=== PATIENT | female | born 1930 | race Caucasian/White ===

== ENCOUNTER → 2016-12-11 | Outpatient (CLI) | payer MEDICARE, OTHER ==
[~2016-12-11] MED LIST: CALC600T12 PO; FOLI-40 PO; METH25PO21 MC; PRED-219 PO
--- NOTE | 2016-12-11 20:16 | ECHOF ---
DATE OF PROCEDURE December 11, 2016 This is a two-dimensional echo with spectral Doppler, color-flow and M-mode. It was obtained in a patient with shortness of air. Left atrial dimension is normal. Left ventricular end-diastolic dimension is normal. Left ventricular wall thickness is increased. LV systolic function is normal with ejection fraction of 65%. Right atrium is normal. Right ventricle is normal. Aortic root dimension is normal. The mitral valve is morphologically normal with mild mitral regurgitation. Aortic valve shows mild fibrocalcific changes with mild aortic insufficiency. Tricuspid valve shows mild tricuspid regurgitation with normal estimated pulmonary artery systolic pressure of 24. Pulmonary valve shows no pulmonary insufficiency. There is no pericardial effusion. IMPRESSION 1. Normal LV systolic function with ejection fraction of 65%. 2. Mild mitral regurgitation. 3. Aortic sclerosis with mild aortic insufficiency. 4. Mild tricuspid regurgitation with normal estimated pulmonary artery systolic pressure of 24. 5. Mild concentric left ventricular hypertrophy. MTDD
== END ==
LOC: IMA 09:42
PROVIDERS: ATTEND Internal Medicine Cardiovascular Disease
DX: I08.3 Combined rheumatic disorders of mitral, aortic and tricuspid valves (principal); R06.02 Shortness of breath; R94.31 Abnormal electrocardiogram [ECG] [EKG]
CPT/HCPCS: 93306

== ENCOUNTER → 2016-12-16 | Outpatient (CLI) | payer MEDICARE, OTHER ==
[~2016-12-16] VITALS: Ht 160 cm; Wt 65.9 kg
[~2016-12-16] MED LIST changes: +REGADENOSON 0.4mg/5ml INJECTION IV ONE; +SALINE FLUSH 10ml SYRINGE ONE
--- NOTE | 2016-12-17 11:45 | ADENOSINEF ---
DATE OF PROCEDURE December 16, 2016 PROCEDURE 1. Lexiscan Myoview. INDICATION Chest pain. IMPRESSION 1. Baseline EKG shows sinus rhythm with frequent PVCs and right bundle branch block and cannot rule out anterior SC. 2. She tolerated the Lexiscan without difficulty. 3. Hemodynamic response to Lexiscan was appropriate. 4. There were no ischemic EKG changes. 5. There were no arrhythmias. 6. 12.3 mCi of Myoview was given for rest images and 31.5 mCi for stress images. 7. Nuclear perfusion images revealed normal coronary perfusion with no scar or ischemia. 8. Quantitative ejection fraction is measured at 62%. MTDD
== END ==
LOC: IMA 12:28
PROVIDERS: ATTEND Internal Medicine Cardiovascular Disease
DX: R07.2 Precordial pain (principal)
CPT/HCPCS: 78452; 93017; A9502; J2785

== ENCOUNTER 2017-01-07 08:00 | Observation (INO) | payer MEDICARE, OTHER ==
[~2017-01-07] VITALS: Ht 165.1 cm; Wt 64.5 kg
[~2017-01-07 08:00] MED LIST changes: +ACET-2723 PO; +MAGN400T6 PO; -METH25PO21 MC; +METH25VI11 IM; -REGADENOSON 0.4mg/5ml INJECTION IV ONE; -SALINE FLUSH 10ml SYRINGE ONE
--- OUTSIDE RECORDS SUMMARY | 2017-01-07 08:11 | XMS REPORT | Referral Summary ---
Author Author [facility] Organization [facility] Address Unknown Phone Unavailable Care Team Providers Care Timber Killer Name Role Phone Stef Pierson Primary Care Physician [phone] Encounter VC Date(s): 10/22/15 - 10/22/15 [facility] [id number] [place] [id number] Discharge Diagnosis: Rheumatoid arthritis (disorder) Discharge Diagnosis: Hx of congestive heart failure Discharge Diagnosis: History of ongoing treatment with high-risk medication Discharge Disposition: 01-Home or Self Care Attending Physician: Kasandra Villa MD Admitting Physician: Kasandra Villa MD Referring Physician: Stef Pierson MD Vital Signs Most recent to 1 oldest [Reference Range]: Temperature Oral 36.6 degC [35.8-37.3 degC] (10/22/15 10:26 AM) Peripheral Pulse 88 bpm Rate [60-100 bpm] (10/22/15 10:26 AM) Blood Pressure 138/80 mmHg [90-140/60-90 mmHg] (10/22/15 10:26 AM) Problem List Condition Effective Dates Status Health Status Informant Arthralgia of the Active ankle and/or foot (finding)(Confirmed) Cerebrovascular Active accident(Confirmed) Hx of congestive Active heart failure(Confirmed) History of ongoing Active treatment with high-risk medication(Confirmed ) HEARING Active LOSS(Confirmed) Osteoporosis(Confirm Active ed) RA(Confirmed) Resolved Rheumatoid arthritis Active (disorder)(Confirmed ) Allergies, Adverse Reactions, Alerts Substance Reaction Severity Status Dilaudid severe constipation Mild Active Plaquenil eye problems Active Medications Aspirin Low Dose 81 mg, Oral, Daily, 0 Refill(s) Start Date: 02/05/14 Status: Ordered calcium citrate 600 mg, Oral, BID, 0 Refill(s) Start Date: 02/05/14 Status: Ordered cholecalciferol 2,000 Intl_Units, Oral, Daily, 0 Refill(s) Start Date: 02/05/14 Status: Ordered folic acid 1 mg oral tablet See Instructions, TAKE ONE TABLET BY MOUTH TWICE A DAY, # 100 tabs, 3 Refill(s) , eRx: [facility] #[id number], TAKE ONE TABLET BY MOUTH TWICE A DAY Start Date: 09/25/15 Status: Ordered methotrexate IV additive See Instructions, INJECT (0.7) ML SUBCUTANEOUSLY EVERY THURSDAY, # 10 mL, 2 Refill(s), eRx: [facility], INJECT (0.7) ML SUBCUTANEOUSLY EVERY THURSDAY Start Date: 03/21/15 Status: Ordered [place] 5 mg-325 mg oral tablet See Instructions, Take 1 tab PO Q 6 hrs and 2 PT at bedtime, 0 Refill(s) Start Date: 02/05/14 Status: Ordered oxybutynin 5 mg oral tablet 1/2 tabs, Oral, Bedtime (once a day), 0 Refill(s) Start Date: 04/23/15 Status: Ordered predniSONE 5 mg oral tablet See Instructions, TAKE ONE TABLET BY MOUTH EVERY DAY, # 90 tabs, 1 Refill(s), eRx: [facility] #[id number], TAKE ONE TABLET BY MOUTH EVERY DAY Start Date: 09/25/15 Status: Ordered Tylenol Caplet 325 mg, Oral, q4hr, as needed for pain, 0 Refill(s) Start Date: 02/05/14 Status: Ordered Results Hematology Most recent to 1 oldest [Reference Range]: WBC [4.8-10.8 7.2 10*3/uL 10*3/uL] (10/22/15 11:23 AM) RBC [4.00-5.20] 4.46 (10/22/15 11:23 AM) Hgb [12.0-16.0 14.2 gm/dL gm/dL] (10/22/15 11:23 AM) Hct [37.0-47.0 %] 44.6 % (10/22/15 11:23 AM) MCV [82.0-99.0 fL] 100.0 fL *HI* (10/22/15 11:23 AM) MCH [27.0-32.0 pg] 31.8 pg (10/22/1523 AM) MCHC [32.0-36.0 31.8 gm/dL gm/dL] *LOW* (10/22/15) RDW [11.5-14.5 %] 14.3 % (10/22/15 AM) Platelet [150-400 242 10*3/uL 10*3/uL] (10/22/15) MPV [8.8-14.8 fL] 10.2 fL (10/22/15) Immature 0.3 % Granulocytes (10/22/15) [0.0-1.0 %] Neutrophils [51-75 84 % %] *HI* (10/22/15) Lymphocytes [20-46 10 % %] *LOW* (10/22/15) Monocytes [4-11 %] 5 % (10/22/15) Eosinophils [0-4 %] 0 % (10/22/15) Basophils [0-2 %] 0 % (10/22/15 AM) Neutro Absolute 6.12 10*3 [1.90-7.00 10*3] (10/22/15 AM) Lymph Absolute 0.70 10*3 [0.80-3.30 10*3] *LOW* (10/22/15) [place] Absolute 0.36 10*3 [0.30-1.00 10*3] (10/22/15 AM) Eos Absolute 0.02 10*3 [0.00-0.50 10*3] (10/22/1523 AM) Baso Absolute 0.02 10*3 [0.00-0.20 10*3] (10/22/15 AM) Chemistry Most recent to 1 oldest [Reference Range]: Sodium Lvl [135-144 141 mEq/L mEq/L] (10/22/1523 AM) Potassium Lvl 4.7 mEq/L [3.5-5.2 mEq/L] (10/22/15 AM) Chloride [99-111 104 mEq/L mEq/L] (10/22/15 AM) CO2 [22-31 mEq/L] 29 mEq/L (10/22/15 AM) AGAP [3-20] 8 (10/22/15 AM) BUN [10-20 mg/dL] 18 mg/dL (10/22/15 AM) Glucose Lvl [70-99 100 mg/dL mg/dL] *HI* (10/22/15 AM) Creatinine Lvl 0.72 mg/dL [0.57-1.11 mg/dL] (10/22/15 AM) eGFR [>60 mL/min] >60 mL/min 1 (10/22/15 AM) Calcium Lvl 10.5 mg/dL [8.9-10.5 mg/dL] (10/22/15 AM) Albumin Lvl [3.4-4.8 4.2 gm/dL gm/dL] (10/22/15 AM) Total Protein 6.6 gm/dL [6.2-8.1 gm/dL] (10/22/15 AM) Globulin [1.8-4.0 2.4 gm/dL gm/dL] (10/22/15 AM) ALT [0-55 U/L] 15 U/L (10/22/15 AM) AST [5-34 U/L] 25 U/L (10/22/15 AM) Alk Phos [40-150 42 U/L U/L] (10/22/15 AM) Bili Total [0.2-1.2 0.7 mg/dL mg/dL] (10/22/15: AM) 1Result Comment: Multiply eGFR results by 1.21 for race. Immunizations No data available for this section Procedures Procedure Date Related Diagnosis Body Site Colonoscopies1 04/16/09 Hip Replacement R 1990 B/L FOOT SX -2 HIP REPLACEMENT Hip Replacement L3 Hip Replacement R4 Knee replacement 1COLONOSCOPY WITH BIOPSIES SHOWING CHRONIC NONSPECIFIC COLITIS. 2DR MARTIN [id number]'S [id number]'S Social History Social History Type Response Smoking Status Never smoker Assessment and Plan Extracted from: Title: Office Visit Note Author: Kasandra Villa MD Date: 10/22/15 Assessment/Plan 1.Rheumatoid arthritis (disorder) 2.History of ongoing treatment with high-risk medication Ordered: CBC w/ Differential Comprehensive Metabolic Panel Office Visit Level 4 Est 08459 3.Hx of congestive heart failure
--- OUTSIDE RECORDS SUMMARY | 2017-01-07 08:11 | XMS REPORT | Referral Summary ---
Author Author [facility] Organization [facility] Address Unknown Phone Unavailable Care Team Providers Care [place] Manager Name Role Phone Stef Pierson Primary Care Physician [phone] Encounter VC Date(s): 03/27/15 - 03/27/15 [facility] [address] [place] [id number] Discharge Disposition: 01-Home or Self Care Attending Physician: Martinez Dumont DPM Admitting Physician: Martinez Dumont DPM Vital Signs No data available for this section Problem List Condition Effective Dates Status Health Status Informant Arthralgia of the Active ankle and/or foot (finding)(Confirmed) Cerebrovascular Active accident(Confirmed) History of ongoing Active treatment with high-risk [...] # 100 tabs, 3 Refill(s) , eRx: [facility] #[id number], TAKE ONE TABLET BY MOUTH TWICE A DAY Start Date: 09/25/15 Status: Ordered methotrexate IV additive See Instructions, INJECT (0.7) ML SUBCUTANEOUSLY EVERY THURSDAY, # 10 mL, 2 Refill(s), eRx: [facility], INJECT (0.7) ML SUBCUTANEOUSLY EVERY THURSDAY Start Date: 03/21/15 Status: Ordered [place] 5 mg-325 mg oral tablet See Instructions, [...] DAY, # 90 tabs, 1 Refill(s), eRx: [facility] #[id number], TAKE ONE TABLET BY MOUTH EVERY DAY Start Date: 09/25/15 Status: Ordered Tylenol Caplet 325 mg, Oral, q4hr, as needed for pain, 0 Refill(s) Start Date: 02/05/14 Status: Ordered Results No data available for this section Immunizations No data available for this section Procedures Procedure Date Related Diagnosis Body Site Colonoscopies1 04/16/09 Hip Replacement R 1990 B/L FOOT SX -2 HIP REPLACEMENT Hip Replacement L3 Hip Replacement R4 Knee replacement 1COLONOSCOPY WITH BIOPSIES SHOWING CHRONIC NONSPECIFIC COLITIS. 2DR MARTIN 21212'S [id number]'S Social History Social History Type Response Smoking Status Never smoker Assessment and Plan No data available for this section
--- OUTSIDE RECORDS SUMMARY | 2017-01-07 08:11 | XMS REPORT | Continuity of Care Document ---
Author Author Nelida Molina [facility] Address [address] [place] [address] Phone Care Team Providers Care Reserve Officer Name Role Phone Stef Pierson PP Unavailable Payers Payer name Insurance type Covered libertarian ID Authorization(s) Unknown Problems Condition Effective Dates (start - stop) Clinical Status Dermatophytosis of foot - *Acute Corns and callosities - *Chronic Pain in limb - *Chronic Rheumatoid Arthritis - *Chronic CVA, Acute - *Acute Rheumatoid Arthritis - *Chronic Rheumatoid Arthritis - *Chronic Therapeutic Drug Monitoring - *Chronic Rheumatoid Arthritis - *Chronic Pain in joint involving ankle and foot - *Chronic Therapeutic Drug Monitoring - *Chronic Pain in joint involving shoulder region - *Worse Edema - *Acute Rheumatoid Arthritis - *Chronic Pain in joint involving ankle and foot - *Chronic Therapeutic Drug Monitoring - *Chronic Other osteoporosis - *Stable Ulcer of foot - Uncertain Edema - *Fair Control Encounter for therapeutic drug monitoring - *Chronic HEARING LOSS NOS - RHEUMATOID ARTHRITIS - OSTEOPOROSIS NEC - Bronchitis, Acute - *Acute Family History Family Member Diagnosis Age At Onset Status Family h/o (Unknown) Diabetes Yes Social History Social History Element Description Quantity Unknown Allergies, Adverse Reactions, Alerts Substance Reaction Severity Status HYDROXYCHLOROQUINE SULFATE EYE PROBLEMS Unknown Medications Medication Instructions Dosage Effective Dates (start - stop) Status Aspirin Low Dose 81 mg tablet,delayed release take 1 tablet (81MG) by oral route every day 81 MG - Active Tylenol 325 mg tablet take 1 tablet (325MG) by oral route every 4 hours as needed 325 MG - Active Calcio William 500 mg tablet two po daily - Active Vitamin D3 2,000 unit tablet one po daily - Active methotrexate sodium 25 mg/mL Injection Inject 0.7 ml SQ every Thursday. Feb - Active prednisone 5 mg tablet Take 1 tablet by mouth every day. - Active folic acid 1 mg tablet ONE PO BID. - Active Immunizations Vaccine Date Status Comments Unknown Results Test Name Date and Time Measure Units Reference Range Abnormal Flag Comments Unknown Vital Signs Date / Time: Height Weight Pulse Rate Blood Pressure Temperature Unknown Procedures Procedure Date Unknown Encounters Encounter Location Date Patient Visit [facility] Pod Patient Visit [facility] Patient Visit [facility] Rheum Patient Visit [facility] Patient Visit [facility] Patient Visit [facility] Patient Visit [facility] Rheum Patient Visit [facility] Patient Visit [facility] Patient Visit [facility] Advance Directives Directive Effective Date Unknown
--- OUTSIDE RECORDS SUMMARY | 2017-01-07 08:11 | XMS REPORT | Referral Summary ---
Author Author [facility] Organization [facility] Address Unknown Phone Unavailable Care Team Providers Care Tree Killer Name Role Phone Vianca Brown Primary Care Physician [phone] Encounter VC Date(s): 10/27/16 - 10/27/16 [facility] [address] [place] [id number] Discharge Diagnosis: Rheumatoid arthritis (disorder) Discharge Diagnosis: Left foot pain Discharge Diagnosis: History of ongoing treatment with high-risk medication Discharge Disposition: 01-Home or Self Care Attending Physician: Kasandra Villa MD Admitting Physician: Kasandra Villa MD Vital Signs Most recent to 1 oldest [Reference Range]: Temperature Oral 36.8 degC [35.8-37.3 degC] (10/27/16 9:59 AM) Peripheral Pulse 80 bpm Rate [60-100 bpm] (10/27/16 9:59 AM) Blood Pressure 123/70 mmHg [90-140/60-90 mmHg] (10/27/16 9:59 AM) Problem List Condition Effective Dates Status Health Status Informant Cerebrovascular Active accident(Confirmed) Left foot Active pain(Confirmed) Hx of congestive Active heart failure(Confirmed) History of ongoing Active treatment with high-risk medication(Confirmed ) HEARING Active LOSS(Confirmed) Osteoporosis(Confirm Active ed) RA(Confirmed) Resolved Rheumatoid arthritis Active (disorder)(Confirmed ) Allergies, Adverse Reactions, Alerts Substance Reaction Severity Status Dilaudid severe constipation Mild Active Plaquenil eye problems Active Medications acetaminophen 500 mg oral tablet 1,000 mg 2 tabs, Oral, BID, OTC, # 100 tabs, 0 Refill(s), other reason (Rx) Start Date: 04/21/16 Status: Ordered Aspirin Low Dose 81 mg, Oral, Daily, 0 Refill(s) Start Date: 02/05/14 Status: Ordered B-D ALLERGY SYRINGE & NEEDLE 28 GAUGE 1/2 " B-D ALLERGY SYRINGE & NEEDLE 28 GAUGE /2 ", See Instructions, FOR USE WITH MTX ADMINISTRATION, # 10 Each, 12 Refill(s), Pharmacy: [facility] #[id number] , FOR USE WITH MTX ADMINISTRATION Start Date: 03/05/16 Status: Ordered calcium citrate 600 mg, Oral, BID, 0 Refill(s) Start Date: 02/05/14 Status: Ordered cholecalciferol 2,000 Intl_Units, Oral, Daily, 0 Refill(s) Start Date: 02/05/14 Status: Ordered folic acid 1 mg oral tablet 1 mg 1 tabs, Oral, BID, # 180 tabs, 3 Refill(s), Pharmacy: [facility] # [id number], 1 tabs Oral BID Start Date: 04/21/16 Status: Ordered methotrexate IV additive See Instructions, INJECT 0.7ML SUBCUTANEOUSLY ONCE WEEKLY, # 10 unknown unit, eRx: [facility] #[id number] Start Date: 10/27/16 Status: Ordered predniSONE 5 mg oral tablet See Instructions, TAKE ONE TABLET BY MOUTH DAILY, # 100 tabs, eRx: [facility] #[id number] Start Date: 10/27/16 Status: Ordered Results No data available for this section Immunizations No data available for this section Procedures Procedure Date Related Diagnosis Body Site Colonoscopies1 04/16/09 Hip Replacement R 1991 B/L FOOT SX -2 HIP REPLACEMENT Hip Replacement L3 Hip Replacement R4 Knee replacement 1COLONOSCOPY WITH BIOPSIES SHOWING CHRONIC NONSPECIFIC COLITIS. 2DR MARTIN 17251'S 44608'S Social History Social History Type Response Smoking Status Never smoker Assessment and Plan No data available for this section
--- OUTSIDE RECORDS SUMMARY | 2017-01-07 08:11 | XMS REPORT | Referral Summary ---
Author Author [facility] Organization [facility] Address Unknown Phone Unavailable Care Team Providers Care Equipment Technician Name Role Phone [facility] Primary Care Physician Unavailable Encounter [facility] [id number] Date(s): 04/21/16 - 04/21/16 [facility] [address] [place] [id number] Discharge Diagnosis: Left foot pain Discharge Diagnosis: History of ongoing treatment with high-risk medication Discharge Diagnosis: Rheumatoid arthritis (disorder) Discharge Diagnosis: Skin ulceration Discharge Disposition: 01-Home or Self Care Attending Physician: Kasandra Villa MD Admitting Physician: Kasandra Villa MD Vital Signs Most recent to 1 oldest [Reference Range]: Temperature Oral 36.6 degC [35.8-37.3 degC] (04/21/16 10:57 AM) Peripheral Pulse 66 bpm Rate [60-100 bpm] (04/21/16 10:57 AM) Blood Pressure 145/67 mmHg [90-140/60-90 mmHg] *HI* (04/21/16 10:57 AM) Problem List Condition Effective Dates Status [...] B-D ALLERGY SYRINGE & NEEDLE 28 GAUGE 2 " B-D ALLERGY SYRINGE & NEEDLE 28 GAUGE 2 ", See Instructions, FOR USE WITH MTX ADMINISTRATION, # 10 Each, 12 Refill(s), Pharmacy: [facility] #[id number] , FOR USE WITH MTX ADMINISTRATION Start Date: 03/05/16 Status: Ordered calcium citrate 600 mg, Oral, BID, 0 Refill(s) Start Date: 02/05/14 Status: Ordered cholecalciferol 2,000 Intl_Units, Oral, Daily, 0 Refill(s) Start Date: 02/05/14 Status: Ordered folic acid 1 mg oral tablet 1 mg 1 tabs, Oral, BID, # 180 tabs, 3 Refill(s), Pharmacy: [facility] # [id number], 1 tabs Oral BID Start Date: 04/21/16 Status: Ordered methotrexate 25 mg/mL injectable solution 17.5 mg 0.7 mL, SubCutaneous, qWeek, # 10 mL, 0 Refill(s), Pharmacy: [facility] #[id number], 0.7 mL SubCutaneous qWeek Start Date: 04/21/16 Status: Ordered predniSONE 5 mg oral tablet 5 mg 1 tabs, Oral, Daily, # 100 tabs, 1 Refill(s), Pharmacy: [facility] # [id number], 1 tabs Oral Daily Start Date: 03/05/16 Status: Ordered Results Hematology Most recent to 1 oldest [Reference Range]: WBC [4.8-10.8 5.6 10*3/uL 10*3/uL] (04/21/16 12:05 PM) RBC [4.00-5.20] 4.52 (04/21/16 12:05 PM) Hgb [12.0-16.0 14.2 gm/dL gm/dL] (04/21/16 12:05 PM) Hct [37.0-47.0 %] 45.3 % (04/21/16 12:05 PM) MCV [82.0-99.0 fL] 100.2 fL *HI* (04/21/16 12:05 PM) MCH [27.0-32.0 pg] 31.4 pg (04/21/16 12:05 PM) MCHC [32.0-36.0 31.3 gm/dL gm/dL] *LOW* (04/21/16:05 PM) RDW [11.5-14.5 %] 14.3 % (04/21/16:05 PM) Platelet [150-400 208 10*3/uL 10*3/uL] (04/21/16:05 PM) MPV [8.8-14.8 fL] 10.6 fL (04/21/16 PM) Immature 0.0 % Granulocytes (04/21/16 PM) [0.0-1.0 %] Neutrophils [51-75 80 % %] *HI* (04/21/16 PM) Lymphocytes [20-46 11 % %] *LOW* (04/21/1605 PM) Monocytes [4-11 %] 8 % (04/21/16:05 PM) Eosinophils [0-4 %] 0 % (04/21/16 PM) Basophils [0-2 %] 0 % (04/21/16:05 PM) Neutro Absolute 4.48 10*3 [1.90-7.00 10*3] (04/21/16:05 PM) Lymph Absolute 0.61 10*3 [0.80-3.30 10*3] *LOW* (04/21/16:05 PM) [place] Absolute 0.45 10*3 [0.30-1.00 10*3] (04/21/16:05 PM) Eos Absolute 0.02 10*3 [0.00-0.50 10*3] (04/21/16:05 PM) Baso Absolute 0.01 10*3 [0.00-0.20 10*3] (04/21/16:05 PM) Chemistry Most recent to 1 oldest [Reference Range]: Sodium Lvl [135-144 142 mEq/L mEq/L] (04/21/16:05 PM) Potassium Lvl 4.6 mEq/L [3.5-5.2 mEq/L] (04/21/16:05 PM) Chloride [99-111 107 mEq/L mEq/L] (8/15/16 12:05 PM) CO2 [22-31 mEq/L] 28 mEq/L (04/21/16 12:05 PM) AGAP [3-20] 7 (04/21/16 12:05 PM) BUN [10-20 mg/dL] 16 mg/dL (04/21/16 12:05 PM) Glucose Lvl [70-99 103 mg/dL mg/dL] *HI* (04/21/16 12:05 PM) Creatinine Lvl 0.70 mg/dL [0.57-1.11 mg/dL] (04/21/16 12:05 PM) eGFR [>60 mL/min] >60 mL/min 1 (04/21/16 12:05 PM) Calcium Lvl 10.6 mg/dL [8.9-10.5 mg/dL] *HI* (04/21/16 12:05 PM) Albumin Lvl [3.4-4.8 4.2 gm/dL gm/dL] (04/21/16 12:05 PM) Total Protein 6.4 gm/dL 2 [6.0-7.6 gm/dL] (04/21/16 12:05 PM) Globulin [1.8-4.0 2.2 gm/dL gm/dL] (04/21/16 12:05 PM) ALT [0-55 U/L] 22 U/L (04/21/16 12:05 PM) AST [5-34 U/L] 28 U/L (04/21/16 12:05 PM) Alk Phos [40-150 46 U/L U/L] (04/21/16 12:05 PM) Bili Total [0.2-1.2 0.6 mg/dL mg/dL] (04/21/16 12:05 PM) 1Result Comment: Multiply eGFR results by 1.21 for race. 2Result Comment: Please note new reference range for adult Protein. Immunizations No data available for this section Procedures Procedure Date Related Diagnosis Body Site Colonoscopies1 04/16/09 Hip Replacement R 1991 B/L FOOT SX -2 HIP REPLACEMENT Hip Replacement L3 Hip Replacement R4 Knee replacement 1COLONOSCOPY WITH BIOPSIES SHOWING CHRONIC NONSPECIFIC COLITIS. 2DR MARTIN 33355'S 43190'S Social History Social History Type Response Smoking Status Never smoker Assessment and Plan Extracted from: Title: Ambulatory Patient Education Author: Senia Gomez RN Date: Family Medicine Rheumatoid Arthritis Rheumatoid arthritis is a long-term (chronic) inflammatory disease that causes pain, swelling, and stiffness of the joints. It can affect the entire body, including the eyes and lungs. The effects of rheumatoid arthritis vary widely among those with the condition. CAUSES The cause of rheumatoid arthritis is not known. It tends to run in families and is more common in women. Certain cells of the body's natural defense system ( immune system) do not work properly and begin to attack healthy joints. It primarily involves the connective tissue that lines the joints (synovial membrane). This can cause damage to the joint. SYMPTOMS Pain, stiffness, swelling, and decreased motion of many joints, especially in the hands and feet. Stiffness that is worse in the morning. It may last 12 hours or longer. Numbness and tingling in the hands. Fatigue. Loss of appetite. Weight loss. Low-grade fever. Dry eyes and mouth. Firm lumps (rheumatoid nodules) that grow beneath the skin in areas such as the elbows and hands. DIAGNOSIS Diagnosis is based on the symptoms described, an exam, and blood tests. Sometimes, X-rays are helpful. TREATMENT The goals of treatment are to relieve pain, reduce inflammation, and to slow down or stop joint damage and disability. Methods vary and may include: Maintaining a balance of rest, exercise, and proper nutrition. Your health care provider may adjust your medicines every 3 months until treatment goals are reached. Common medicines include: Pain relievers (analgesics). Corticosteroids and nonsteroidal anti-inflammatory drugs (NSAIDs) to reduce inflammation. Disease-modifying antirheumatic drugs (DMARDs) to try to slow the course of the disease. Biologic response modifiers to reduce inflammation and damage. Physical therapy and occupational therapy. Surgery for patients with severe joint damage. Joint replacement or fusing of joints may be needed. Routine monitoring and ongoing care, such as office visits, blood and urine tests, and X-rays. Your health care provider will work with you to identify the best treatment option for you, based on an assessment of the overall disease activity in your body. HOME CARE INSTRUCTIONS Remain physically active and reduce activity when the disease gets worse. Eat a well-balanced diet. Put heat on affected joints when you wake up and before activities. Keep the heat on the affected joint for as long as directed by your health care provider. Put ice on affected joints following activities or exercising. Put ice in a plastic bag. Place a towel between your skin and the bag. Leave the ice on for 15-20 minutes, 3-4 times per day, or as directed by your health care provider. Take medicines and supplements only as directed by your health care provider. Use splints as directed by your health care provider. Splints help maintain joint position and function. Do not sleep with pillows under your knees. This may lead to spasms. Participate in a self-management program to keep current with the latest treatment and coping skills. SEEK IMMEDIATE MEDICAL CARE IF: You have fainting episodes. You have periods of extreme weakness. You rapidly develop a hot, painful joint that is more severe than usual joint aches. You have chills. You have a fever. FOR MORE INFORMATION [employer]: www.rheumatology.org Ar[employer]: www.arthritis.org This information is not intended to replace advice given to you by your health care provider. Make sure you discuss any questions you have with your health care provider. Document Released: 08/21/2001 Document Revised: 09/14/2015 Document Reviewed: [employer] Patient Information 2016 [employer], [facility]. No follow up information was provided.
--- OUTSIDE RECORDS SUMMARY | 2017-01-07 08:11 | XMS REPORT | Referral Summary ---
Author Author [facility] Organization [facility] Address Unknown Phone Unavailable Care Team Providers Care It Corporate Recruiter Name Role Phone Stef Pierson Primary Care Physician [phone] Encounter [facility] Date(s): 04/23/15 - 04/23/15 [facility] [address] [place] [id number] Discharge Diagnosis: History of ongoing treatment with high-risk medication Discharge Diagnosis: Arthralgia of the ankle and/or foot Discharge Diagnosis: Rheumatoid arthritis Discharge Diagnosis: Osteoporosis Discharge Disposition: 01-Home or Self Care Attending Physician: Kasandra Villa MD Admitting Physician: Kasandra Villa MD Vital Signs Most recent to 1 oldest [Reference Range]: Temperature Oral 36.7 degC [35.8-37.3 degC] (04/23/15 10:17 AM) Peripheral Pulse 72 bpm Rate [60-100 bpm] (04/23/15 10:17 AM) Blood Pressure 118/66 mmHg [90-140/60-90 mmHg] (04/23/15 10:17 AM) Problem List Condition Effective Dates Status [...] # 100 tabs, 3 Refill(s) , eRx: [facility] #[id number], TAKE ONE TABLET BY MOUTH TWICE A DAY Start Date: 03/21/15 Status: Ordered methotrexate IV additive See Instructions, INJECT (0.7) ML SUBCUTANEOUSLY EVERY THURSDAY, # 10 mL, 2 Refill(s), eRx: [facility], INJECT (0.7) ML SUBCUTANEOUSLY EVERY THURSDAY Start Date: 03/21/15 Status: Ordered [place] 5 mg-325 mg oral tablet See Instructions, [...] # 90 tabs, 1 Refill(s), eRx: [facility] #[id number], TAKE ONE TABLET BY MOUTH EVERY DAY Start Date: 03/21/15 Status: Ordered Tylenol Caplet 325 mg, Oral, [...] BIOPSIES SHOWING CHRONIC NONSPECIFIC COLITIS. 2DR MARTIN 79484'S 25312'S Social History Social History Type Response Smoking Status Never smoker Assessment and Plan Extracted from: Title: Ambulatory Patient Education Author: Kasandra Villa MD Date: Labs Bone Densitometry Bone densitometry is a special X-ray that measures your bone density and can be used to help predict your risk of bone fractures. This test is used to determine bone mineral content and density to diagnose osteoporosis. Osteoporosis is the loss of bone that may cause the bone to become weak. Osteoporosis commonly occurs in women entering menopause. However, it may be found in men and in people with other diseases. PREPARATION FOR TEST No preparation necessary. WHO SHOULD BE TESTED? All women older than 65. Postmenopausal women (50 to 65) with risk factors for osteoporosis. People with a previous fracture caused by normal activities. People with a small body frame (less than 127 poundsor a body mass index [BMI] of less than 21). People who have a parent with a hip fracture or history of osteoporosis. People who smoke. People who have rheumatoid arthritis. Anyone who engages in excessive alcohol use (more than 3 drinks most days). Women who experience early menopause. WHEN SHOULD YOU BE RETESTED? Current guidelines suggest that you should wait at least 2 years before doing a bone density test again if your first test was normal.Recent studies indicated that women with normal bone density may be able to wait a few years before needing to repeat a bone density test. You should discuss this with your caregiver. NORMAL FINDINGS Normal: less than standard deviation below normal (greater than -1). Osteopenia: 1 to 2.5 standard deviations below normal (-1 to -2.5). Osteoporosis: greater than 2.5 standard deviations below normal (less than -2.5). Test results are reported as a "T score" and a "Z score."The T score is a number that compares your bone density with the bone density of healthy, young women.The Z score is a number that compares your bone density with the scores of women who are the same age, gender, and race. Ranges for normal findings may vary among different laboratories and hospitals. You should always check with your doctor after having lab work or other tests done to discuss the meaning of your test results and whether your values are considered within normal limits. MEANING OF TEST Your caregiver will go over the test results with you and discuss the importance and meaning of your results, as well as treatment options and the need for additional tests if necessary. OBTAINING THE TEST RESULTS It is your responsibility to obtain your test results. Ask the lab or department performing the test when and how you will get your results. Document Released: 09/15/2005 Document Revised: 11/15/2012 Document Reviewed: [facility] Patient Information 2015 [employer] [facility]. This information is not intended to replace advice given to you by your health care provider. Make sure you discuss any questions you have with your health care provider. No follow up information was provided. Extracted from: Title: Office Visit Note Author: Kasandra Villa MD Date: 04/23/15 Assessment/Plan 1.Rheumatoid arthritis 2.Arthralgia of the ankle and/or foot 3.Osteoporosis 4.History of ongoing treatment with high-risk medication Ordered: CBC w/ Differential Comprehensive Metabolic Panel Orders: CBC w/ Differential CBC w/ Differential Comprehensive Metabolic Panel Comprehensive Metabolic Panel
--- OUTSIDE RECORDS SUMMARY | 2017-01-07 08:11 | XMS REPORT | Referral Summary ---
Author Author [facility] Organization [facility] Address Unknown Phone Unavailable Care Team Providers Care Supervisor Of Communications Name Role Phone Stef Pierson Primary Care Physician [phone] Encounter [facility] Date(s): 04/23/15 - 04/23/15 [facility] [address] [place] [place] [id number] Discharge Diagnosis: History of ongoing treatment [...] # 100 tabs, 3 Refill(s) , eRx: [facility] #[id number], TAKE ONE TABLET BY MOUTH TWICE A DAY Start Date: 03/21/15 Status: Ordered methotrexate IV additive See Instructions, INJECT (0.7) ML SUBCUTANEOUSLY EVERY THURSDAY, # 10 mL, 2 Refill(s), eRx: [facility], INJECT (0.7) ML SUBCUTANEOUSLY EVERY THURSDAY Start Date: 03/21/15 Status: Ordered [place] 5 mg-325 mg oral tablet See Instructions, [...] DAY, # 90 tabs, 1 Refill(s), eRx: [facility] #[id number], TAKE ONE TABLET BY MOUTH EVERY DAY [...] BIOPSIES SHOWING CHRONIC NONSPECIFIC COLITIS. 2DR MARTIN 44701'S 23327'S Social History Social History Type Response Smoking [...] Released: 09/15/2005 Document Revised: 11/15/2012 Document Reviewed: [facility] Patient Information 2015 [employer] [facility]. This information is not intended to [...]
--- OUTSIDE RECORDS SUMMARY | 2017-01-07 08:11 | XMS REPORT | Referral Summary ---
Author Author [facility] Organization [facility] Address Unknown Phone Unavailable Care Team Providers Care Chlorinator Operator Name Role Phone Stef Pierson Primary Care Physician [phone] Encounter [facility] Date(s): 04/23/15 - 04/23/15 [facility] [address] [place] [place] [id number] Discharge Diagnosis: History of ongoing [...] 100 tabs, 3 Refill(s) , eRx: [facility] #[id number], TAKE ONE TABLET BY MOUTH TWICE A DAY Start Date: 09/25/15 Status: Ordered methotrexate IV additive See Instructions, INJECT (0.7) ML SUBCUTANEOUSLY EVERY THURSDAY, # 10 mL, 2 Refill(s), eRx: [facility], INJECT (0.7) ML SUBCUTANEOUSLY EVERY THURSDAY Start Date: 03/21/15 Status: Ordered [place] 5 mg-325 mg oral tablet See Instructions, [...] # 90 tabs, 1 Refill(s), eRx: [facility] #[id number], TAKE ONE TABLET BY MOUTH EVERY DAY [...] BIOPSIES SHOWING CHRONIC NONSPECIFIC COLITIS. 2DR MARTIN 98635'S 61797'S Social History Social History Type Response Smoking [...] Released: 09/15/2005 Document Revised: 11/15/2012 Document Reviewed: [facility] Patient Information 2015 [employer] [facility]. This information is not intended to replace [...]
--- OUTSIDE RECORDS SUMMARY | 2017-01-07 08:11 | XMS REPORT | Referral Summary ---
Author Author [facility] Organization [facility] Address Unknown Phone Unavailable Care Team Providers Care Conventional Underwriter Name Role Phone Stef Pierson Primary Care Physician [phone] Encounter [facility] Date(s): 04/23/15 - 04/23/15 [facility] [address] [place] [place] [id number] Discharge Diagnosis: History of ongoing [...] # 100 tabs, 3 Refill(s) , eRx: [facility] #[id number], TAKE ONE TABLET BY MOUTH TWICE A DAY Start Date: 03/21/15 Status: Ordered methotrexate IV additive See Instructions, INJECT (0.7) ML SUBCUTANEOUSLY EVERY THURSDAY, # 10 mL, 2 Refill(s), eRx: [facility], INJECT (0.7) ML SUBCUTANEOUSLY EVERY THURSDAY Start Date: 03/21/15 Status: Ordered [place] 5 mg-325 mg oral tablet See Instructions, [...] DAY, # 90 tabs, 1 Refill(s), eRx: [facility] #[id number], TAKE ONE TABLET BY MOUTH EVERY DAY [...] BIOPSIES SHOWING CHRONIC NONSPECIFIC COLITIS. 2DR MARTIN 53092'S 77181'S Social History Social History Type Response Smoking [...] Released: 09/15/2005 Document Revised: 11/15/2012 Document Reviewed: [facility] Patient Information 2015 [employer] [facility]. This information is not intended to replace [...]
--- OUTSIDE RECORDS SUMMARY | 2017-01-07 08:11 | XMS REPORT | Referral Summary ---
Author Author [facility] Organization [facility] Address Unknown Phone Unavailable Care Team Providers Care Hide Examiner Name Role Phone Stef Pierson Primary Care Physician [phone] Encounter [facility] Date(s): 04/23/15 - 04/23/15 [facility] [address] [place] [place] [id number] Discharge Diagnosis: History of ongoing treatment with [...] # 100 tabs, 3 Refill(s) , eRx: [facility] #[id number], TAKE ONE TABLET BY MOUTH TWICE A DAY Start Date: 03/21/15 Status: Ordered methotrexate IV additive See Instructions, INJECT (0.7) ML SUBCUTANEOUSLY EVERY THURSDAY, # 10 mL, 2 Refill(s), eRx: [facility], INJECT (0.7) ML SUBCUTANEOUSLY EVERY THURSDAY Start Date: 03/21/15 Status: Ordered [place] 5 mg-325 mg oral tablet See Instructions, [...] DAY, # 90 tabs, 1 Refill(s), eRx: [facility] #[id number], TAKE ONE TABLET BY MOUTH EVERY DAY [...] BIOPSIES SHOWING CHRONIC NONSPECIFIC COLITIS. 2DR MARTIN 47413'S 08448'S Social History Social History Type Response Smoking [...] Released: 09/15/2005 Document Revised: 11/15/2012 Document Reviewed: [facility] Patient Information 2015 [employer] [facility]. This information is not intended to [...]
--- OUTSIDE RECORDS SUMMARY | 2017-01-07 08:11 | XMS REPORT | Referral Summary ---
Author Author [facility] Organization [facility] Address Unknown Phone Unavailable Care Team Providers Care Take Away Worker Name Role Phone Stef Pierson Primary Care Physician [phone] Encounter [facility] Date(s): 12/31/15 - 12/31/15 [facility] [address] [place], [place] [address] Discharge Diagnosis: Onychomycosis of toenail Discharge Diagnosis: Foot callus Discharge Diagnosis: Rheumatoid arthritis of foot Discharge Disposition: 01-Home or Self Care Attending [...] # 100 tabs, 3 Refill(s) , eRx: [facility] #[id number], TAKE ONE TABLET BY MOUTH TWICE A DAY Start Date: 09/25/15 Status: Ordered methotrexate 25 mg/mL injectable solution 17.5 mg 0.7 mL, SubCutaneous, qWeek, # 10 mL, 0 Refill(s), [facility], 0.7 mL SubCutaneous qWeek Start Date: 12/18/15 Status: Ordered [place] 5 mg-325 mg oral tablet See Instructions, [...] DAY, # 90 tabs, 1 Refill(s), eRx: [facility] #[id number], TAKE ONE TABLET BY MOUTH EVERY DAY Start Date: 09/25/15 Status: Ordered Tylenol Caplet 325 mg, Oral, q4hr, as needed for pain, 0 Refill(s) Start Date: 02/05/14 Status: Ordered Results No data available for this section Immunizations No data available for this section Procedures Procedure Date Related Diagnosis Body Site Paring or cutting of benign hyperkeratotic 12/31/15 lesion (eg, corn or callus); 2 to 4 lesions Colonoscopies1 04/16/09 Hip Replacement R 1990 B/L FOOT SX -2 HIP REPLACEMENT Hip Replacement L3 Hip Replacement R4 Knee replacement 1COLONOSCOPY WITH BIOPSIES SHOWING CHRONIC NONSPECIFIC COLITIS. 2DR MARTIN 72971'S 43557'S Social History Social History Type Response Smoking Status Never smoker Assessment and Plan Extracted from: Title: Office Visit Note Author: Martinez Dumont DPM Date: 12/31/15 Assessment/Plan Foot callus Paring of hyperkeratotic lesiontimes 2 of plantar left forefoot wasperformed via #15 blade. No underlying ulceration noted. Patient states that she does notwish to make follow-up appointment at this time and she would like to call for an appointment when it bothers her. Onychomycosis [facility]enail [facility] Rheumatoid arthritis of foot Stable.
--- OUTSIDE RECORDS SUMMARY | 2017-01-07 08:11 | XMS REPORT | Referral Summary ---
Author Author [facility] Organization [facility] Address Unknown Phone Unavailable Care Team Providers Care Patient Support Representative Name Role Phone Stef Pierson Primary Care Physician [phone] Encounter VC Date(s): 09/10/15 - 09/10/15 [facility] [address], [place] [address] Discharge Diagnosis: Onychomycosis of toenail Discharge Diagnosis: Rheumatoid arthritis of foot Discharge Diagnosis: Foot callus Discharge Diagnosis: Peripheral vascular disease Discharge Disposition: 01-Home or Self Care Attending [...] # 100 tabs, 3 Refill(s) , eRx: [facility] #[id number], TAKE ONE TABLET BY MOUTH TWICE A DAY Start Date: 03/21/15 Status: Ordered methotrexate IV additive See Instructions, INJECT (0.7) ML SUBCUTANEOUSLY EVERY THURSDAY, # 10 mL, 2 Refill(s), eRx: [facility], INJECT (0.7) ML SUBCUTANEOUSLY EVERY THURSDAY Start Date: 03/21/15 Status: Ordered [place] 5 mg-325 mg oral tablet See Instructions, [...] DAY, # 90 tabs, 1 Refill(s), eRx: [facility] #[id number], TAKE ONE TABLET BY MOUTH EVERY DAY Start Date: 03/21/15 Status: Ordered Tylenol Caplet 325 mg, Oral, q4hr, as needed for pain, 0 Refill(s) Start Date: 02/05/14 Status: Ordered Results No data available for this section Immunizations No data available for this section Procedures Procedure Date Related Diagnosis Body Site Debridement of nail(s) by any method(s); 6 or 09/10/15 more Paring or cutting of benign hyperkeratotic 09/10/15 lesion (eg, corn or callus); 2 to 4 lesions Colonoscopies1 04/16/09 Hip Replacement R 1990 B/L FOOT SX -2 HIP REPLACEMENT Hip Replacement L3 Hip Replacement R4 Knee replacement 1COLONOSCOPY WITH BIOPSIES SHOWING CHRONIC NONSPECIFIC COLITIS. 2DR MARTIN 07302'S 95049'S Social History Social History Type Response Smoking Status Never smoker Assessment and Plan Extracted from: Title: Office Visit Note Author: Martinez Dumont DPDevyn Date: 09/10/15 Assessment/Plan Foot callus Paring of hyperkeratotic lesiontimes 2 of plantar left forefoot wasperformed via #15 blade. No underlying ulceration noted. Patient requested for another pair of postop shoe with peg assist insole. Follow up if condition worsens. Onychomycosis of toenail ABN and consent forms were signed by the patient. Debridement of toenails,total of 10 was performed viamanual and mechanical means without any incidence. Follow up if condition worsens. Peripheral vascular disease Stable. Rheumatoid arthritis of foot Stable.
--- OUTSIDE RECORDS SUMMARY | 2017-01-07 08:11 | XMS REPORT | Referral Summary ---
Author Author [facility] Organization [facility] Address Unknown Phone Unavailable Care Team Providers Care Province Archivist Name Role Phone Stef Pierson Primary Care Physician [phone] Encounter VC Date(s): 04/23/15 - 04/23/15 [facility] [address] [place] [address] Discharge Diagnosis: History of ongoing treatment with [...] eRx: [facility] #[id number], TAKE ONE TABLET BY MOUTH TWICE A DAY Start Date: 03/21/15 Status: Ordered methotrexate IV additive See Instructions, INJECT (0.7) ML SUBCUTANEOUSLY EVERY THURSDAY, # 10 mL, 2 Refill(s), eRx: [facility], INJECT (0.7) ML SUBCUTANEOUSLY EVERY THURSDAY Start Date: 03/21/15 Status: Ordered Marcol[place] 5 mg-325 mg oral tablet See Instructions, [...] eRx: [facility] #[id number], TAKE ONE TABLET BY MOUTH EVERY DAY [...] BIOPSIES SHOWING CHRONIC NONSPECIFIC COLITIS. 2DR MARTIN 75678'S 45938'S Social History Social History Type Response Smoking [...] Released: 09/15/2005 Document Revised: 11/15/2012 Document Reviewed: [facility] Patient Information 2015 [employer]: [employer] [facility]. This information is not intended to replace [...]
--- OUTSIDE RECORDS SUMMARY | 2017-01-07 08:11 | XMS REPORT | Continuity of Care Document ---
Author Author Nubia Spann MA [facility] Address [address] [place] [address] Phone Unavailable Care Team Providers Care Machine Operator Farmworker Name Role Phone Stef Pierson PP Unavailable Payers Payer name Insurance type Covered democrat ID Authorization(s) Unknown Problems Condition Effective Dates (start - stop) Clinical Status Rheumatoid Arthritis - *Chronic Pain in joint involving ankle and foot - *Chronic Therapeutic Drug Monitoring - *Chronic Other osteoporosis - *Stable Ulcer of foot - Uncertain CVA, Acute - *Acute Rheumatoid Arthritis - *Chronic Rheumatoid Arthritis - *Chronic Therapeutic Drug Monitoring - *Chronic Rheumatoid Arthritis - *Chronic Pain in joint involving ankle and foot - *Chronic Therapeutic Drug Monitoring - *Chronic Pain in joint involving shoulder region - *Worse Edema - *Acute Edema - *Fair Control Encounter for therapeutic drug monitoring - *Chronic HEARING LOSS NOS - RHEUMATOID ARTHRITIS - OSTEOPOROSIS NEC - Dermatophytosis of foot - *Acute Corns and callosities - *Chronic Pain in limb - *Chronic Rheumatoid Arthritis - *Chronic Bronchitis, Acute - *Acute Family History Family [...] Measure Units Reference Range Abnormal Flag Comments Panel Description: CBC WBC 11:02:00 7.2 K/uL 4.8-10.8 RBC 11:02:00 4.58 M/uL 4.00-5.20 HGB 11:02:00 14.2 g/dl 12.0-16.0 HCT 11:02:00 44.3 % 37.0-47.0 MCV 11:02:00 96.7 fL 82.0-99.0 MCH 11:02:00 31.0 pg 27.0-32.0 MCHC 11:02:00 32.1 g/dL 32.0-36.0 RDW 11:02:00 15.1 % 11.5-14.5 H MPV 11:02:00 10.6 fL 8.8-14.8 Platelet Count 11:02:00 258 K/uL 150-400 Immature Granulocytes 11:02:00 0.3 % 0.0-1.0 Absolute Neutrophils 11:02:00 6.01 THOUS 1.90-7.00 Absolute Lymphocytes 11:02:00 0.66 THOUS 0.80-3.30 L Absolute Monocytes 11:02:00 0.42 THOUS 0.30-1.00 Absolute Eosinophils 11:02:00 0.04 THOUS 0.00-0.50 Absolute Basophils 11:02:00 0.02 THOUS 0.00-0.20 Neutrophils 11:02:00 84 % 51-75 H Lymphocytes 11:02:00 9 % 20-46 L Monocytes 11:02:00 6 % 4-11 Eosinophils 11:02:00 1 % 0-4 Basophils 11:02:00 0 % 0-2 Testing performed at [facility] Reference Lab [address] [place] [address] Manager Facility Reji Redd MD Panel Description: Liver Profile Albumin 11:02:00 4.3 g/dL 3.4-4.8 Bilirubin Total 11:02:00 0.7 mg/dL 0.2-1.2 Bilirubin Direct 11:02:00 0.3 mg/dL 0.0-0.5 Bilirubin Indirect 11:02:00 0.4 mg/dL 0.0-1.0 Alkaline Phosphatase 11:02:00 47 U/L 40-150 Protein 11:02:00 6.6 g/dL 6.2-8.1 ALT (SGPT) 11:02:00 14 U/L 0-55 AST (SGOT) 11:02:00 23 U/L 5-34 Testing performed at [facility] Reference [facility] [address] [place] [address] Manager Facility Reji Redd MD Vital Signs Date / Time: Height Weight Pulse Rate Blood Pressure Temperature /10:23:00 65.50 in 142.00 lbs 86 /min 138/89 mm[Hg] 97.9 F Procedures Procedure Date Unknown Encounters Encounter Location Date Patient Visit [facility] Mur Rheum Patient Visit [facility] FM Patient Visit [facility] Mur Rheum Patient Visit [facility] Mur Rheum Patient Visit [facility] Rheum Patient Visit [facility] Patient Visit [facility] Patient Visit Conversion Patient Visit [facility] FC Pod Patient Visit [facility] Advance Directives Directive Effective Date Unknown
--- OUTSIDE RECORDS SUMMARY | 2017-01-07 08:11 | XMS REPORT | Referral Summary ---
Author Author [facility] Organization [facility] Address Unknown Phone Unavailable Care Team Providers Care Base Ply Hand Name Role Phone Stef Pierson Primary Care Physician [phone] Encounter VC Date(s): 04/23/15 - 04/23/15 [facility] [address] [place] [address] Discharge Diagnosis: History of ongoing treatment [...] # 100 tabs, 3 Refill(s) , eRx: [facility] #[id number], TAKE ONE TABLET BY MOUTH TWICE A DAY Start Date: 03/21/15 Status: Ordered methotrexate IV additive See Instructions, INJECT (0.7) ML SUBCUTANEOUSLY EVERY THURSDAY, # 10 mL, 2 Refill(s), eRx: [facility], INJECT (0.7) ML SUBCUTANEOUSLY EVERY THURSDAY Start Date: 03/21/15 Status: Ordered [place] 5 mg-325 mg oral tablet See Instructions, [...] DAY, # 90 tabs, 1 Refill(s), eRx: [facility] #[id number], TAKE ONE TABLET BY MOUTH EVERY DAY [...] BIOPSIES SHOWING CHRONIC NONSPECIFIC COLITIS. 2DR MARTIN 64703'S 54575'S Social History Social History Type Response Smoking [...] Released: 09/15/2005 Document Revised: 11/15/2012 Document Reviewed: [facility] Patient Information 2015 [employer] [facility]. This information is not intended [...]
--- OUTSIDE RECORDS SUMMARY | 2017-01-07 08:11 | XMS REPORT | Continuity of Care Document ---
Author Author [facility] Organization [facility] Address Unknown Phone Unavailable Allergies Medications Problems Procedures Results Encounters ACCT No. Visit Date/Time Discharge Status Pt. Type Provider Facility Loc./Unit Complaint [id number] 08/10/2013 13:44:00 08/10/2013 23 :59:59 CLS Outpatient [id number] 08/09/2013 10:22:00 08/09/2013 23 :59:59 CLS Outpatient
--- NOTE | 2017-01-07 08:16 | NUR ---
ARRIVAL AMBULATORY WITH CANE TO ROOM 120. O2 RA. PATIENT DOES NOT APPEAR TO BE IN ANY DISTRESS AT THIS TIME. ALERT AND ORIENTED X3. SON AT BEDSIDE. ELIZABETH MCDONALD RN AWARE OF PATIENT'S ARRIVAL.
[2017-01-07 08:21] VITALS: Ht 165.1 cm; Wt 64.5 kg
[2017-01-07] MEDS ORDERED: SENN-9 PO (08:28)
[2017-01-07] MEDS ORDERED: RIVA20TA PO (08:28)
[2017-01-07] MEDS ORDERED: CHOL200026 PO (08:28)
[2017-01-07 08:29] VITALS: BP 132/73; PULSE 108; RESP 20; TEMP 97.7; O2SAT 98
[2017-01-07 08:45] LABS: HCT - HEMATOCRIT 46.2 % (36-46); HGB - HEMOGLOBIN 14.7 GM/DL (12-16); MEAN CORPUSCULAR HGB 31.7 UUG (26-34); MEAN CORPUSCULAR HGB CONC(MCHC 31.8 GM/DL (31-37); MEAN CORPUSCULAR VOLUME 99.6 UM3 (80-100); MEAN PLATELET VOLUME 9.9 UM3 (9.4-12.4); RED BLOOD COUNT 4.64 M/MM3 (4.00-5.20); WBC - WHITE BLOOD COUNT 8.8 T/MM3 (4.5-11.0)
[2017-01-07 08:55] VITALS: PULSE 108; RESP 20
[2017-01-07 09:11] LABS: ALBUMIN 3.8 G/DL (3.5-5.0); ALBUMIN/GLOBULIN RATIO 1.4 RATIO (1.1-2.2); ALKALINE PHOSPHATASE 48 U/L (38-126); AST (SGOT) 33 U/L (14-36); BUN/CREATININE RATIO 23 RATIO (6-26); CALCIUM 9.8 MG/DL (8.4-10.2); CHLORIDE 104 MEQ/L (98-107); CO2 - CARBON DIOXIDE 29 MEQ/L (22-30); CREATININE 0.6 MG/DL (0.7-1.2); GLOMERULAR FILTRATION RATE 95; GLUCOSE 103 MG/DL (65-110); TOTAL PROTEIN 6.6 G/DL (6.3-8.2)
[2017-01-07 09:12] LABS: ALT (SGPT) 41 U/L (9-52); ANION GAP 10 MEQ/L (5-15); MAGNESIUM 2.4 MG/DL (1.6-2.3); POTASSIUM 4.5 MEQ/L (3.6-5); SODIUM 143 MEQ/L (134-144)
[2017-01-07] MEDS ORDERED: SALINE FLUSH 10ml SYRINGE IVF PRN (09:30)
[2017-01-07 09:38] LABS: BASOPHILS # (MANUAL) 0.1 T/MM3 (0-0.2); LYMPHOCYTES # (MANUAL) 0.5 T/MM3 (1-4.8); MONOCYTES # (MANUAL) 0.4 T/MM3 (0-0.8); NEUTROPHILS #(MANUAL)-ABSOLUTE 7.7 T/MM3 (1.8-7.7); TOTAL CELLS COUNTED 100 %
[2017-01-07 09:39] LABS: POIKILOCYTOSIS 1+; TEAR DROP CELLS 1+
[2017-01-07 09:40] LABS: BURR CELLS 1+
[2017-01-07 09:41] LABS: THYROID STIM HORMONE-TSH 2.24 MIU/L (0.47-4.68)
[2017-01-07] MEDS ORDERED: PredniSONE 5 MG TABLET PO SCH (09:48)
[2017-01-07] MEDS: FLECAINIDE 50 MG TABLET PO SCH ×2 (09:51→21:45)
--- NOTE | 2017-01-07 10:36 | NUR ---
OBED CLAY VISITED PT. CM EXPLAINED ROLE AND PROVIDED CONTACT INFORMATION. PT PLANS TO RETURN HOME POST STAY AT [facility]. PT DENIES NEEDS. PT IS AWARE TO CONTACT CM IF NEEDS ARISE.
--- NOTE | 2017-01-07 14:06 | HPPDOC ---
HPI - Adult Date DATE: 01/07/17 TIME: 11:02 General Date of Admission Date of Admission: January 07, 2017 at 08:04 Chief Complaint: antiarrhythmia History of Present Illness Becky is a 86 year old female who is well known to Dr. Man with a history of paroxysmal atrial fibrillation who had a recent Holter which showed irregular beats. She is being admitted to observation today for antiarrhythmic therapy to start on Flecainide. She takes Xarelto 20mg daily for anticoagulation to prevent stroke. Her recent stress test was unremarkable and recent echo is stable Past Medical History Past Medical History Neurological: CVA (2011) Musculoskeletal: rheumatoid arthritis Psychological: depression Surgical History General: other (cataract removal) Current Medications Home Meds Reported Medications Cholecalciferol (Vitamin D3) (Vitamin D-3) 2,000 Unit Capsule, 2 CAP PO DAILY 01/07/17 Sennosides/Docusate Sodium (Senokot-S Tablet) 1 Each Tablet, 3-5 TAB PO DAILY, TAB Take 2 tablets, by mouth, 1 time a day. 01/07/17 Rivaroxaban (Xarelto) 20 Mg Tablet, 1 TAB PO DAILY, #30 TAB 11 Refills 01/07/17 Acetaminophen (Tylenol Extra Strength) 500 Mg Tablet, 1-2 TAB PO Q6H Y for PAIN/ FEVER, TAB 01/06/17 Magnesium Oxide (Magnesium Oxide) 400 Mg Tablet, 1 TAB PO BID, TAB Take one tablet, twice daily. 01/06/17 Methotrexate Sodium (Methotrexate) 25 Mg/1 Ml Vial, 1 UNIT IM WEEKLY, #8 01/06/17 Calcium Carbonate (Calcium) 600 Mg Tablet, 1800 MG PO DAILY 07/08/12 Folic Acid (Folic Acid) 1 Mg Tablet, 1 MG PO BID, #2 0 Refills 02/01/10 Prednisone (Prednisone) 5 Mg Tablet, 5 MG PO DAILY, 0 Refills 02/01/10 Allergies: Coded Allergies: No Known Allergies (Verified , 01/07/17) Family History FOUND: [place], cancer Vaccines No Social History Smoking Status: Never smoker Alcohol Intake: none Advance Directives: Yes DPOA for Healthcare Only Review of Systems Constitutional: REPORTS: fatigue, DENIES: chills, dizziness, fever, weakness Eyes Vision: DENIES: blurring ENMT Hearing: DENIES: tinnitus Balance: DENIES: vertigo Sinuses: NOT FOUND: rhinorrhea Mouth/Throat: DENIES: sore throat Cardiovascular DENIES: chest pain, dyspnea on exertion, murmur, orthopnea, paroxysmal nocturnal dysp Rhythm/Rate: irregular beat, DENIES: palpitations, tachycardia Vascular: DENIES: pedal edema Pulmonary Respiratory: DENIES: cough, sputum GI Upper Abdomen: DENIES: nausea, vomiting Lower Abdomen: DENIES: blood in stool, diarrhea General: DENIES: dysuria Integumentary Skin: DENIES: rash, sores Neurological General: DENIES: headache, numbness, seizures, syncope, weakness All Other Systems All Other Systems: Reviewed (remainder of 10-point ROS Neg.) Physical Exam General General Nourishment: well nourished, well developed, apparent age Vital Signs Vital Signs Date Time Temp Pulse Resp B/P Pulse Ox O2 Delivery O2 Flow Rate FiO2 01/07/17 08:55 108 20 01/07/17 08:29 97.7 132/73 98 Room Air Height (Feet): 5 Height (Inches): 5.00 Telemetry Rhythm: Sinus Tachycardia, Sinus Arhythmia ENMT Brief: FOUND: mucosa moist Neck Brief: NOT FOUND: JVD, carotid bruits Respiratory Brief: FOUND: clear all oliveros, equal bilaterally, NOT FOUND: rales , wheezes Cardiovascular (brief) Cardiac Brief: FOUND: regular rhythm, NOT FOUND: click, gallop, murmur, pedal edema, regular rate Abdomen (brief) Abdominal Brief: FOUND: BS normo active x4, soft, NOT FOUND: tender Integumentary (brief) Integumentary Brief: FOUND: dry, pink, warm Neurologic RN Documented GCS Eye Opening: Verbal: Motor: Total: Psychiatric (brief) FOUND: alert, attentive, oriented Laboratory Laboratory Tests Test 01/07/17 08:33 01/07/17 08:48 01/07/17 08:56 White Blood Count 8.8T/MM3 Red Blood Count 4.64M/MM3 Hemoglobin 14.7GM/DL Hematocrit 46.2% Mean Corpuscular Volume 99.6UM3 Mean Corpuscular Hemoglobin 31.7UUG Mean Corpuscular Hemoglobin Concent 31.8GM/DL RDW Standard Deviation 49.8FL Platelet Count 203T/MM3 Mean Platelet Volume 9.9UM3 Immature Granulocyte % (Auto) % Neutrophils (%) (Auto) % Lymphocytes (%) (Auto) % Monocytes (%) (Auto) % Eosinophils (%) (Auto) % Basophils (%) (Auto) % Absolute Immature Granulocyte (auto T/MM3 Absolute Neutrophils (auto) T/MM3 Absolute Lymphocytes (auto) T/MM3 Absolute Monocytes (auto) T/MM3 Absolute Eosinophils (auto) T/MM3 Absolute Basophils (auto) T/MM3 Neutrophils % (Manual) 88.0% Lymphocytes % (Manual) 6.0% Monocytes % (Manual) 5.0% Basophils % (Manual) 1.0% Absolute Neutrophils (Manual) 7.7T/MM3 Lymphocytes # (Manual) 0.5T/MM3 Monocytes # (Manual) 0.4T/MM3 Basophils # (Manual) 0.1T/MM3 Poikilocytosis 1+ Tear Drop Cells 1+ [place] Cells 1+ Red Cell Morphology Comment Abnormal Specimen Comment (Misc) Lab to recollect Tests Not Done Cmp mag tsh t4f Reason Tests Not Done Hemolyzed specimen Turbidity < 20 Sodium Level 143MEQ/L Potassium Level 4.5MEQ/L Chloride Level 104MEQ/L Carbon Dioxide Level 29MEQ/L Anion Gap 10MEQ/L Blood Urea Nitrogen 14.0MG/DL Creatinine 0.6MG/DL Glomerular Filtration Rate Calc 95 BUN/Creatinine Ratio 23RATIO Glucose Level 103MG/DL Calculated Osmolality 276MOSM/KG Calcium Level 9.8MG/DL Magnesium Level 2.4MG/DL Total Bilirubin 0.70MG/DL Icterus Index < 2 Aspartate Amino Transf (AST/SGOT) 33U/L Alanine Aminotransferase (ALT/SGPT) 41U/L Alkaline Phosphatase 48U/L Total Protein 6.6G/DL Albumin 3.8G/DL Globulin 2.8G/DL Albumin/Globulin Ratio 1.4RATIO Thyroid Stimulating Hormone (TSH) 2.24MIU/L Chemistry Specimen Hemolysis < 15 Laboratory Tests Test 01/07/17 08:33 01/07/17 08:48 01/07/17 08:56 White Blood Count 8.8T/MM3 Red Blood Count 4.64M/MM3 Hemoglobin 14.7GM/DL Hematocrit 46.2% Mean Corpuscular Volume 99.6UM3 Mean Corpuscular Hemoglobin 31.7UUG Mean Corpuscular Hemoglobin Concent 31.8GM/DL RDW Standard Deviation 49.8FL Platelet Count 203T/MM3 Mean Platelet Volume 9.9UM3 Immature Granulocyte % (Auto) % Neutrophils (%) (Auto) % Lymphocytes (%) (Auto) % Monocytes (%) (Auto) % Eosinophils (%) (Auto) % Basophils (%) (Auto) % Absolute Immature Granulocyte (auto T/MM3 Absolute Neutrophils (auto) T/MM3 Absolute Lymphocytes (auto) T/MM3 Absolute Monocytes (auto) T/MM3 Absolute Eosinophils (auto) T/MM3 Absolute Basophils (auto) T/MM3 Neutrophils % (Manual) 88.0% Lymphocytes % (Manual) 6.0% Monocytes % (Manual) 5.0% Basophils % (Manual) 1.0% Absolute Neutrophils (Manual) 7.7T/MM3 Lymphocytes # (Manual) 0.5T/MM3 Monocytes # (Manual) 0.4T/MM3 Basophils # (Manual) 0.1T/MM3 Poikilocytosis 1+ Tear Drop Cells 1+ [place] Cells 1+ Red Cell Morphology Comment Abnormal Specimen Comment (Misc) Lab to recollect Tests Not Done Cmp mag tsh t4f Reason Tests Not Done Hemolyzed specimen Turbidity < 20 Sodium Level 143MEQ/L Potassium Level 4.5MEQ/L Chloride Level 104MEQ/L Carbon Dioxide Level 29MEQ/L Anion Gap 10MEQ/L Blood Urea Nitrogen 14.0MG/DL Creatinine 0.6MG/DL Glomerular Filtration Rate Calc 95 BUN/Creatinine Ratio 23RATIO Glucose Level 103MG/DL Calculated Osmolality 276MOSM/KG Calcium Level 9.8MG/DL Magnesium Level 2.4MG/DL Total Bilirubin 0.70MG/DL Icterus Index < 2 Aspartate Amino Transf (AST/SGOT) 33U/L Alanine Aminotransferase (ALT/SGPT) 41U/L Alkaline Phosphatase 48U/L Total Protein 6.6G/DL Albumin 3.8G/DL Globulin 2.8G/DL Albumin/Globulin Ratio 1.4RATIO Thyroid Stimulating Hormone (TSH) 2.24MIU/L Chemistry Specimen Hemolysis < 15 Laboratory Tests Test 01/07/17 08:33 01/07/17 08:48 01/07/17 08:56 White Blood Count 8.8T/MM3 Red Blood Count 4.64M/MM3 Hemoglobin 14.7GM/DL Hematocrit 46.2% Mean Corpuscular Volume 99.6UM3 Mean Corpuscular Hemoglobin 31.7UUG Mean Corpuscular Hemoglobin Concent 31.8GM/DL RDW Standard Deviation 49.8FL Platelet Count 203T/MM3 Mean Platelet Volume 9.9UM3 Immature Granulocyte % (Auto) % Neutrophils (%) (Auto) % Lymphocytes (%) (Auto) % Monocytes (%) (Auto) % Eosinophils (%) (Auto) % Basophils (%) (Auto) % Absolute Immature Granulocyte (auto T/MM3 Absolute Neutrophils (auto) T/MM3 Absolute Lymphocytes (auto) T/MM3 Absolute Monocytes (auto) T/MM3 Absolute Eosinophils (auto) T/MM3 Absolute Basophils (auto) T/MM3 Neutrophils % (Manual) 88.0% Lymphocytes % (Manual) 6.0% Monocytes % (Manual) 5.0% Basophils % (Manual) 1.0% Absolute Neutrophils (Manual) 7.7T/MM3 Lymphocytes # (Manual) 0.5T/MM3 Monocytes # (Manual) 0.4T/MM3 Basophils # (Manual) 0.1T/MM3 Poikilocytosis 1+ Tear Drop Cells 1+ [place] Cells 1+ Red Cell Morphology Comment Abnormal Specimen Comment (Misc) Lab to recollect Tests Not Done Cmp mag tsh t4f Reason Tests Not Done Hemolyzed specimen Turbidity < 20 Sodium Level 143MEQ/L Potassium Level 4.5MEQ/L Chloride Level 104MEQ/L Carbon Dioxide Level 29MEQ/L Anion Gap 10MEQ/L Blood Urea Nitrogen 14.0MG/DL Creatinine 0.6MG/DL Glomerular Filtration Rate Calc 95 BUN/Creatinine Ratio 23RATIO Glucose Level 103MG/DL Calculated Osmolality 276MOSM/KG Calcium Level 9.8MG/DL Magnesium Level 2.4MG/DL Total Bilirubin 0.70MG/DL Icterus Index < 2 Aspartate Amino Transf (AST/SGOT) 33U/L Alanine Aminotransferase (ALT/SGPT) 41U/L Alkaline Phosphatase 48U/L Total Protein 6.6G/DL Albumin 3.8G/DL Globulin 2.8G/DL Albumin/Globulin Ratio 1.4RATIO Thyroid Stimulating Hormone (TSH) 2.24MIU/L Chemistry Specimen Hemolysis < 15 EKG Sinus with frequent PVCs, IWMI Assessment & Plan Problems: (1) Paroxysmal atrial fibrillation Status: Chronic Assessment & Plan: Recent Holter which showed irregular beats. She is being admitted to observation today for antiarrhythmic therapy to start on Flecainide. She takes Xarelto 20mg daily for anticoagulation to prevent stroke. Her recent stress test was unremarkable and recent echo is stable. Continue to monitor telemetry and repeat EKG in the morning DVT Prophylaxis: Xarelto Code Status Full Code Hospital Course Summary Disclaimer The hospital course summary below is not to be considered part of the above Progress Note. EZEQUIEL GAVIRIA APRN January 07, 2017 11:04
[2017-01-07 16:28] VITALS: BP 119/76; PULSE 95; RESP 16; TEMP 97.3; O2SAT 94
[2017-01-07] MEDS: FOLIC ACID 1 MG PO SCH (21:45)
[2017-01-07] MEDS: ACETAMINOPHEN 500 MG PO PRN (21:46)
[2017-01-07 23:38] VITALS: BP 128/73; PULSE 92; RESP 16; TEMP 97.7; O2SAT 95
--- NOTE | 2017-01-08 01:13 | NUR ---
Chart Check 24 hour chart check completed
[2017-01-08 03:25] VITALS: BP 128/68; PULSE 91; RESP 18; TEMP 98.1; O2SAT 95
[2017-01-08 05:19] LABS: ANION GAP 8 MEQ/L (5-15); BUN/CREATININE RATIO 24 RATIO (6-26); CALCIUM 9.7 MG/DL (8.4-10.2); CHLORIDE 107 MEQ/L (98-107); CO2 - CARBON DIOXIDE 29 MEQ/L (22-30); CREATININE 0.7 MG/DL (0.7-1.2); GLOMERULAR FILTRATION RATE 79; GLUCOSE 91 MG/DL (65-110); MAGNESIUM 2.5 MG/DL (1.6-2.3); POTASSIUM 4.4 MEQ/L (3.6-5); SODIUM 144 MEQ/L (134-144)
--- NOTE | 2017-01-08 06:23 | NUR ---
SUMMARY RESTED THROUGH PART OF THE NIGHT WITH EYES CLOSED. UP FREQUENTLY TO AMBULATE TO THE BATHROOM. UP WITH ONE PERSON ASSIST AND A CANE. NO COMPLAINTS OF PAIN OR DISCOMFORT. TACHYCARDIC AT TIMES WITH ACTIVITY. NO CHANGE IN ASSESSMENT. WILL CONTINUE TO MONITOR.
[2017-01-08 07:58] VITALS: BP 120/68; PULSE 107; RESP 21; TEMP 97.8; O2SAT 95
[2017-01-08 07:59] VITALS: PULSE 107; RESP 21
[2017-01-08] MEDS ORDERED: POM PredniSONE 5 MG TABLET PO SCH (08:00)
[2017-01-08] MEDS: FLECAINIDE 50 MG TABLET PO SCH (08:33)
[2017-01-08] MEDS: ACETAMINOPHEN 500 MG PO PRN (08:34)
[2017-01-08] MEDS: FOLIC ACID 1 MG PO SCH (08:35)
--- NOTE | 2017-01-08 08:38 | NUR ---
CM CM IN TO VISIT PATIENT, SHE IS UP IN CHAIR, A&O. NO FAMILY IS PRESENT. PATIENT PLANS TO DISCHARGE HOME, SHE LIVES ALONE BUT CHECKED ON DAILY BY FAMILY. HAS A RIDE HOME. DENIES NEEDS. CM CONTACT INFORMATION GIVEN.
[2017-01-08] MEDS ORDERED: CALCIUM CARBONATE 600 MG TABLET PO SCH (09:00)
[2017-01-08] MEDS ORDERED: SENNA PO SCH (09:00)
[2017-01-08] MEDS ORDERED: POM RIVAROXABAN 20 MG TABLET PO SCH (09:00)
[2017-01-08] MEDS ORDERED: DOCUSATE PO SCH (09:00)
[2017-01-08] MEDS ORDERED: FLEC50TA2 PO (12:25)
--- NOTE | 2017-01-08 14:09 | NUR ---
DISCHARGE PT DISCHARGED TO HOME AT THIS TIME IN THE COMPANY OF HER SON. PT TRANSPORTED TO THE FRONT ENTRANCE BY WHEELCHAIR AND STAFF. DISCHARGE INSTRUCTIONS INCLUDING DIET, ACTIVITY, MEDICATIONS, FOLLOW UP APPOINTMENT, REPORTABLE S/S, NEW MEDICATION/PRESCRIPTION FLECAINIDE GIVEN AND REVIEWED WITH PATIENT. PT VERBALIZED UNDERSTANDING AND HAD NO FURTHER QUESTIONS. IVL DISCONTINUED. ARMBAND REMOVED. PERSONAL BELONGINGS AND HOME MEDICATIONS RETURNED.
== END 2017-01-08 14:09 | disposition home or self-care (01) ==
LOC: SRG 08:04
PROVIDERS: ADMIT Internal Medicine Cardiovascular Disease; ATTEND Internal Medicine Cardiovascular Disease
DX: I48.0 Paroxysmal atrial fibrillation (principal); R07.2 Precordial pain; F32.9 Major depressive disorder, single episode, unspecified; M06.9 Rheumatoid arthritis, unspecified; Z79.899 Other long term (current) drug therapy; Z79.02 Long term (current) use of antithrombotics/antiplatelets; Z86.73 Personal history of transient ischemic attack (TIA), and cerebral infarction without residual deficits
CPT/HCPCS: 36415; 80048; 80053; 83735; 84439; 84443; 85025; 93005; A9270; G0378; G0379; J7512; 99218